=== PATIENT | female | born 1985 | race Caucasian/White ===

== ENCOUNTER 2017-03-10 11:03 | Emergency (ER) | payer OTHER ==
[~2017-03-10] VITALS: Ht 162.6 cm; Wt 73.0 kg
[~2017-03-10 11:03] MED LIST: ADVAIR 250/501 DISK IH; ATARAX,VISTARIL25 MG PO; ATARAX,VISTARIL50 MG PO; AXID150 MG PO; AZO95 MG PO; BACLOFEN10 MG PO; BACLOFEN20 MG PO; BACTRIM,SEPT1 TABLET PO; BENADRYL50 MG PO; CLONAZEPAM0.5 MG PO; CYCLOBENZAPRINE10 MG PO; DEPO-PROVER150 MG/ML IM; ELAVIL50 MG PO; ELIMITE 5% CREA60 GM TP; FIORICET,ESG1 TABLET PO; FLEXERIL10 MG PO; FLONASE16 G1 BOTH NARES; GABAPENTIN300 MG PO; IBUPROFEN800 MG PO; INDOCIN25 MG PO; INDOCIN50 MG PO; KEFLEX500 MG PO; LEXAPRO20 MG PO; LIDOCAINE20 MG/1 M5 PO; LORTAB 5-325 M1 EACH PO; MOBIC15 MG PO; MORPHINE SULFAT30 M5 PO; MOTRIN600 MG PO; MOTRIN800 MG PO; MS CONTIN,ORAMO15 M1 PO; MUCUS RELIEF600 M1 PO; NAPROSYN500 MG PO; NEURONTIN100 MG PO; NEXIUM20 MG PO; NOHOMEMEDS; NORCO 5/3251 TABLET PO; NORCO 7.5/321 TABLET PO; PEN-VEE K,VEET500 MG PO; PEPCID20 MG PO; PERCOCET 5/31 TABLET PO; PREDNISONE10 M1 PO; PREDNISONE20 MG PO; PREDNISONE50 MG PO; PRILOSEC20 MG PO; PROAIR HFA8.5 GM IH; SOMA250 MG; TYLENOL REGULA325 MG PO; ULTRAM50 MG PO; VALIUM5 MG PO; VENTOLIN HFA18 GM IH; VICODIN,LORT1 TABLET PO; VITAMIN B-6100 MG PO; ZANTAC150 MG PO; ZOFRAN ODT8 MG PO; percocet
[2017-03-10] MEDS ORDERED: MOBIC7.5 MG PO (13:20)
[2017-03-10 13:37] VITALS: BP 112/70
== END 2017-03-10 13:38 | disposition home or self-care (01) ==
LOC: EME 11:03
DX: M77.12 Lateral epicondylitis, left elbow (principal)
CPT/HCPCS: 73080; 99281; 99283